=== PATIENT | male | born 1945 ===

== ENCOUNTER 2023-03-06 05:30 | Day surgery (SDC) | payer OTHER ==
[2023-02-28 12:43] LABS: INR 1.03; PARTIAL THROMBOPLASTIN TIME 27.1 SECONDS (22.0-34.0); PROTHROMBIN TIME 10.8 SECONDS (9.0-11.5)
[~2023-03-06] VITALS: Ht 177.8 cm; Wt 113.4 kg
[~2023-03-06 05:30] MED LIST: BENICAR5 MG PO; MESTINON60 M1 PO; MYRBETRIQ50 MG PO; OXYBU PO; PREGABALIN75 MG PO; TADALAFIL PO
== END 2023-03-06 13:00 | disposition home or self-care (01) ==
LOC: CIR.AMB 05:30
PROVIDERS: ATTEND Urology
DX: N20.0 Calculus of kidney (principal); R33.9 Retention of urine, unspecified